=== PATIENT | female | born 1950 | race African-American/Black ===

== ENCOUNTER 2017-03-31 03:25 | Emergency (ER) | payer MEDICARE ==
--- NOTE | 2017-03-31 04:29 | ER Document Report ---
ED General - General Chief Complaint: Shoulder Pain Stated Complaint: ARM PAIN Time Seen by Provider: 03/31/17 04:16 TRAVEL OUTSIDE OF THE [place] IN LAST 30 DAYS: No - HPI Notes: Patient is a 67yo female who presents to the ED c/o rt shoulder pain x2-3 days with no known injury. Pt states that she feels the pain in her right trap and radiating into the shoulder/deltoid. Pt states that she is unable to raise up her arm bc of the pain. Pt states that she did injure her clavicle on that side in the past, but has not had these kind of issues with her shoulder. Pt states that she has been having trouble sleeping bc of the pain. OTC meds have not been helping. No other concerns or complaints. Denies any headache, fever , head injury, neck pain, URI, sore throat, chest pain, palpitations, syncope, cough, shortness of breath, wheeze, dyspnea, abdominal pain, nausea/vomiting/ diarrhea, urinary retention, dysuria, numbness/tingling, or rash. - Related Data Allergies/Adverse Reactions: codeine [Codeine] Allergy (Severe, Verified 03/24/15 09:50) ? erythromycin base [Erythromycin Base] Allergy (Severe, Verified 08/09/14 08:55) Unknown reaction Penicillins Allergy (Severe, Verified 08/09/14 08:55) Anaphylaxis tetracycline [Tetracycline] Allergy (Severe, Verified 08/09/14 08:55) Generalized edema contrast Allergy (Severe, Uncoded 03/24/15 10:04) Hives Past Medical History - Social History Smoking Status: Unknown if Ever Smoked Family History: Reviewed & Not Pertinent Patient has suicidal ideation: No Patient has homicidal ideation: No - Past Medical History Cardiac Medical History: Denies: Hx Coronary Artery Disease, Hx Heart Attack, Hx Hypertension Pulmonary Medical History: Reports: Hx Asthma, Hx Pneumonia - 14 yrs ago Denies: Hx Bronchitis, Hx COPD Neurological Medical History: Denies: Hx Cerebrovascular Accident, Hx Seizures Renal/ Medical History: Denies: Hx Peritoneal Dialysis Musculoskeltal Medical History: Reports Hx Arthritis - All over - Immunizations Hx Diphtheria, Pertussis, Tetanus Vaccination: No Hx Pneumococcal Vaccination: 04/03/11 Review of Systems - Review of Systems Notes: REVIEW OF SYSTEMS: CONSTITUTIONAL : Denies fever, chills, or sweats. Denies recent illness. EENT: Denies eye, ear, throat, or mouth pain or symptoms. Denies nasal or sinus congestion or discharge. Denies throat, tongue, or mouth swelling or difficulty swallowing. CARDIOVASCULAR: Denies chest pain. Denies palpitations or racing or irregular heart beat. Denies ankle edema. RESPIRATORY: Denies cough, cold, or chest congestion. Denies shortness of breath, difficulty breathing, or wheezing. GASTROINTESTINAL: Denies abdominal pain or distention. Denies nausea, vomiting , or diarrhea. Denies blood in vomitus, stools, or per rectum. Denies black, tarry stools. Denies constipation. GENITOURINARY: Denies difficulty urinating, painful urination, burning, frequency, blood in urine, or discharge. MUSCULOSKELETAL: see hpi SKIN: Denies rash, lesions or sores. NEUROLOGICAL: Denies confusion or altered mental status. Denies passing out or loss of consciousness. Denies dizziness or lightheadedness. Denies headache. Denies weakness or paralysis or loss of use of either side. Denies problems with gait or speech. Denies sensory loss, numbness, or tingling. ALL OTHER SYSTEMS REVIEWED AND NEGATIVE. Dictation was performed using [employer] voice recognition software Physical Exam - Vital signs Vitals: Temp Pulse Resp BP Pulse Ox 98.7 F 59 L 18 186/74 H 98 03/31/17 03:36 03/31/17 03:36 03/31/17 03:36 03/31/17 03:36 03/31/17 03:36 Notes: PHYSICAL EXAMINATION: GENERAL: Well-appearing, well-nourished and in no acute distress. HEAD: Atraumatic, normocephalic. EYES: Pupils equal round and reactive to light, extraocular movements intact, sclera anicteric, conjunctiva are normal. ENT: EAC clear b/l. TM's intact b/l without erythema, fluid, or perforation. Nares patent and without discharge. oropharynx clear without exudates. No tonsilar hypertrophy or erythema. Moist mucous membranes. No sinus tenderness. NECK: Normal range of motion, supple without lymphadenopathy. No rigidity/ meningismus. No midline tenderness. + tenderness to the Rt trap mm. LUNGS: Breath sounds clear to auscultation bilaterally and equal. No wheezes rales or rhonchi. HEART: Regular rate and rhythm without murmurs, rubs, gallops. Musculoskeletal: FROM to passive of rt shoulder. LROM to active to flexion/ extension. Strength 5+/5. No obvious RC deficit noted, but could not test supraspinatus. + mild tenderness to the deltoid mm and near the AC joint. Extremities: No cyanosis, clubbing, or edema b/l. Peripheral pulses 2+. Capillary refill less than 3 seconds. NEUROLOGICAL: Normal speech, normal gait. Normal sensory, motor exams PSYCH: Normal mood, normal affect. SKIN: Warm, Dry, normal turgor, no rashes or lesions noted. Course - Re-evaluation Re-evalutation: 03/31/17 05:45 Patient is an afebrile, well-hydrated, 67-year-old female who presents to the ED with right shoulder pain (XR: calcific tendonitis & AC jt arthritic changes) . Vitals are stable. PE otherwise unremarkable. X-ray was unremarkable for any acute fracture or dislocation. Low suspicion/risk for any septic joint, neurovascular compromise, meningitis, disc herniation causing severe spinal stenosis, fracture, dislocation, or other systemic emergent condition at this time. Patient is aware that her condition can change from initial presentation and she needs to monitor symptoms closely and seek medical attention if any acute changes. A sling was given today for temporary use. I will send her home with a prescription for naproxen and Voltaren gel. Advised recheck with PCM in 3-5 days. Schedule an appointment with orthopedics for further evaluation and management. Consider consult with physical therapy. Return to the ED with any worsening/concerning symptoms otherwise as reviewed in discharge. Patient is in agreement. - Vital Signs Vital signs: Temp Pulse Resp BP Pulse Ox 98.7 F 59 L 18 186/74 H 98 03/31/17 03:36 03/31/17 03:36 03/31/17 03:36 03/31/17 03:36 03/31/17 03:36 Discharge - Discharge Clinical Impression: Right shoulder pain Qualifiers: Chronicity: acute Qualified Code(s): M25.511 - Pain in right shoulder Condition: Stable Disposition: HOME, SELF-CARE Instructions: Ice Massage ([facility]), Ice Packs ([facility]), Exercise Program for the Shoulder ([facility]), Temporary Sling ([facility]), Warm Packs ([facility]) Additional Instructions: Rest, Ice, Compression, Elevation Use sling as directed Tylenol/ibuprofen as needed Light stretches daily Strength exercises as able Moist heat and massage may help F/u with your PCP in 2-3 days for a recheck Consider consult(s) with Orthopedics/physical therapy for ongoing/worsening symptoms Return to the ED with any worsening symptoms and/or development of fever, headache, chest pain, palpitations, syncope, shortness of breath, trouble breathing, abdominal pain, n/v/d, muscle weakness/paralysis, numbness/tingling, swelling, redness, or other worsening symptoms that are concerning to you. Prescriptions: Diclofenac Sodium [Voltaren] 4 gm TP QID PRN #100 gel..gm. PRN Reason: Naproxen 500 mg PO BID PRN #30 tablet PRN Reason: Forms: Elevated Blood Pressure Referrals: RONI PORTER MD [Primary Care Provider] - Follow up in 3-5 days [facility] [Provider Group] - Follow up in 3-5 days
--- NOTE | 2017-03-31 05:16 | RADIOLOGY REPORT (SQ) ---
EXAM DESCRIPTION: SHOULDER RIGHT 2 OR MORE VIEWS COMPLETED DATE/TIME: 03/31/2017 4:49 am REASON FOR STUDY: rt shoulder pain, no known injury COMPARISON: None. NUMBER OF VIEWS: Three views. TECHNIQUE: Internal rotation, external rotation, and Y view images acquired of the right shoulder. LIMITATIONS: None. FINDINGS: MINERALIZATION: Normal. BONES: No acute fracture or dislocation. No worrisome bone lesions. JOINTS: No dislocation. Mild acromioclavicular osteoarthritis includes 0.3 cm ossicular fragmentatio n superiorly. VISUALIZED LUNGS AND RIBS: No pneumothorax. No rib fracture. SOFT TISSUES: Calcific tendinitis of the right rotator cuff. OTHER: Pin fixation of the right distal clavicle. Surgical clips of the right axilla. IMPRESSION: No acute findings. 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 Moderate calcific rotator cuff tendinitis. TECHNICAL DOCUMENTATION: JOB ID: [id number] [employer] All Rights Reserved
[2017-03-31 06:00] VITALS: BP 180/90
== END 2017-03-31 05:58 | disposition home or self-care (01) ==
LOC: ER 03:25
DX: M25.511 Pain in right shoulder (principal)
CPT/HCPCS: 99283

== ENCOUNTER → 2017-09-20 | Outpatient (CLI) | payer MEDICARE ==
--- NOTE | 2017-09-20 12:21 | RADIOLOGY REPORT (SQ) ---
EXAM DESCRIPTION: MRI RT UPPER JOINT WITHOUT COMPLETED DATE/TIME: 09/20/2017 10:57 am REASON FOR STUDY: CALCIFIC TENDINITIS OF RIGHT SHOULDER (M75.31) M75.31 CALCIFIC TENDINITIS OF RIGH T SHOULDER COMPARISON: Right shoulder three views 03/31/2017 TECHNIQUE: Right shoulder images acquired and stored on PACS. Multiplanar imaging to include fat sen sitive sequences such as T1, water sensitive sequences such as FST2/STIR, cartilage sensitive sequenc es such as FSPD/gradient-echo sequences. LIMITATIONS: None. FINDINGS: BONE MARROW AND CORTEX: No marrow signal abnormalities worrisome for occult fracture. The re are subcortical in the greater tuberosity right humeral head. JOINT OR BURSAL EFFUSION: No significant joint fluid or fluid in the subacromial/subdeltoid bursa GLENO-HUMERAL ARTICULATION: Normal articulation. No subluxation. No cystic change. No osteophytes or cartilage loss. ACROMION AND AC JOINT: Type 2 acromion. There is metallic artifact from eye K-wire in the distal cla vicle. Moderate acromioclavicular joint hypertrophy sagittal image 8 and coronal image 10. ROTATOR CUFF AND INTERVAL: There is tendinopathy with thickening and increased intrinsic signal of th e supra and infraspinatus tendons. Tendinopathy superior margin of the subscapularis. No focal full -thickness rotator cuff tear. No rotator interval tear. No rotator interval thickening to suggest adhesive capsulitis. LABRUM AND BICEPS LABRAL COMPLEX: Intra-articular long head biceps tendon is thickened and high in signal from tendinopathy. Although the attachment to the labrum is intact, the posterosuperior labru m is diffusely small worrisome for tear. No paralabral cyst formation REMAINDER OF LABRUM AND IGHL : No gross tear or paralabral cyst formation. Labral evaluation is less than optimal without joint distention. No thickening of IGHL to suggest adhesive capsulitis. PERIARTICULAR AND ADJACENT SOFT TISSUES: No masses or abnormal nodes. OTHER: No other significant finding. IMPRESSION: Rotator cuff tendinopathy, long head biceps tendinopathy Small posterosuperior labral tear TECHNICAL DOCUMENTATION: JOB ID: [id number] [employer]- All Rights Reserved Reading location - IP/workstation name: [facility]
== END ==
LOC: RAD 09:57
PROVIDERS: ATTEND Orthopaedic Surgery
DX: M75.31 Calcific tendinitis of right shoulder (principal)